=== PATIENT | female | born 1995 | race Hispanic/Latino ===

== ENCOUNTER 2023-06-20 01:18 | Observation (INO) | payer BC, SELFPAY ==
[2023-06-20] VITALS (9 sets, daily range): BP systolic 110–133; BP diastolic 62–85; PULSE 53–72; RESP 14–18; TEMP 35.9–36.9; O2SAT 99–100; BMI 41.9; BMI 42.2
--- NOTE | 2023-06-20 01:27 | EDS_ITS ---
HPI History of Present Illness Chief Complaint: Flank Pain Informant: patient Onset/Context/Timing Onset: Today Context: Gradual Onset Timing: Continuous Quality: Aching Location: Right lower thoracic area and right upper quadrant of her abdomen Worsened by: Nothing Relieved by: Nothing Narrative Narrative: Patient presents with back pain that began today. Patient states it came on gradually. Patient states it has been constant. Patient describes it as aching. Patient states it is over her lower thoracic area and radiates around to her right upper abdomen. Patient admits to some nausea and vomiting. Patient denies any diarrhea, melena, or hematochezia. Patient denies any hematemesis or coffee-ground emesis. Patient denies any urinary complaints. Patient states nothing makes her pain better and nothing makes it worse. Patient denies any fevers or chills. [facility] Medical History Kidney stones Home Medications NK 06/20/23 [History Last Taken Unknown] Allergy/AdvReac Type Severity Reaction Status Date / Time No Known Allergies Allergy Verified 06/20/23 01:19 Surgical History no surgical history no surgical history Social History Smoking Status: Never smoker ROS ROS ED Constitutional Constitutional ED: Denies chills or fever(s) Eyes Eyes: Denies blurry vision or change in vision ENT ENT ED: Denies rhinorrhea or sore throat Cardiovascular Cardiovascular: Denies chest pain or palpitations Respiratory/Chest Respiratory/Chest: Denies cough or dyspnea Gastrointestinal Gastrointestinal: Reports abdominal pain, nausea and vomiting; Denies diarrhea or melena Genitourinary Genitourinary ED: Denies dysuria or hematuria Musculoskeletal Musculoskeletal: Reports back pain; Denies neck pain Integumentary Denies abscess or rash Neurologic Neurologic: Denies headache(s) or weakness Allergic/Immunologic Allergic/Immunologic ED: Denies mouth swelling or urticaria EXAM Physical Exam Const Vital Signs: 06/20/23 01:19 06/20/23 03:18 06/20/23 05:00 Temperature 96.7 F L Temperature Source Temporal Pulse Rate 72 70 Respiratory Rate 18 18 Blood Pressure 133/75 H 131/85 H 129/81 H Blood Pressure Mean 94 100 97 Pulse Ox 100 99 06/20/23 06:23 Temperature Temperature Source Pulse Rate Respiratory Rate Blood Pressure 126/77 H Blood Pressure Mean 93 Pulse Ox Positive well nourished, well developed and obese General Appearance ED: well developed and NAD Nutritional Appearance: obese HEENT Reports moist mucous membranes Neck supple and no JVD Resp normal respiratory effort and clear to auscultation bilaterally Cardio regular rate and regular rhythm GI non-distended Palpation: soft and tender RUQ and Wang's sign; Negative for guarding or rebound tenderness present Back/Spine General Back: CVA tenderness right Neuro oriented x3, CN's II-XII intact bilaterally and no sensory deficits noted Sensorium / Orientation: alert Motor Exam: strength 5/5 throughout Psych mental status grossly normal Skin skin turgor normal MDM MDM MDM Narrative Medical decision making narrative: Differential diagnosis includes cholecystitis, cholelithiasis, pancreatitis, peptic ulcer disease, duodenal ulcer, pyelonephritis, ureteral calculus, bowel obstruction, perforation, and gastroenteritis. CBC will be obtained to assess for leukocytosis and anemia. Comprehensive metabolic profile will be obtained to assess for hepatic function, renal function, and electrolyte abnormality. Lipase will be obtained to assess for pancreatitis. Urinalysis will be obtained to assess for urinary tract infection and hematuria. CT scan of the abdomen pelvis will be obtained to assess for ureteral calculus, bowel obstruction, perforation, cholecystitis, and cholelithiasis. Lab Data Attestation: I reviewed the patient's lab results. Lab results narrative: CBC was reviewed. There is a mild leukocytosis of 12.3. The remainder is w ithin normal limits. Comprehensive metabolic profile was reviewed. Glucose was slightly elevated at 122. ALT was slightly elevated at 71. The remainder is within normal limits. Lipase was reviewed and was normal. Urinalysis was reviewed. There are 5-10 epithelial cells. There is no white blood cells or red blood cells noted. There is no bacteria noted. Labs: Laboratory Results - last 24 hr 06/20/23 06/20/23 01:25 05:15 WBC 12.3 H RBC 4.35 Hgb 13.2 Hct 40.6 MCV 93.3 MCH 30.3 MCHC 32.5 RDW Std Deviation 41.5 RDW Coeff of Thierry 12.1 Plt Count 361 MPV 9.6 Immature Gran % (Auto) 0.400 Neut % (Auto) 66.0 Lymph % (Auto) 28.3 Andrews % (Auto) 4.7 Eos % (Auto) 0.3 Baso % (Auto) 0.3 Absolute Neuts (auto) 8.1 H Absolute Lymphs (auto) 3.48 Nucleated RBC % 0 Sodium 139 Potassium 3.6 Chloride 107 Carbon Dioxide 27.0 Anion Gap 5 BUN 13 Creatinine 0.88 Estim Creat Clear Calc 133.98 Est GFR (MDRD) Af Amer 99 Est GFR (MDRD) Non-Af 82 BUN/Creatinine Ratio 14.8 Glucose 122 H Calcium 9.2 Total Bilirubin 0.60 AST 32 ALT 71 H Alkaline Phosphatase 85 Total Protein 8.1 Albumin 3.9 Globulin 4.2 Albumin/Globulin Ratio 0.9 Lipase 36 Serum , Qual NEGATIVE Urine Color Yellow Urine Clarity Clear Urine pH 7.0 Ur Specific [place] 1.010 Urine Protein 15 H Urine Glucose (UA) Normal Urine Ketones Negative Urine Occult Blood 25 H Urine Nitrite Negative Urine Bilirubin Negative Urine Urobilinogen Normal Ur Leukocyte Esterase 100 H Urine RBC 0 SEEN Urine WBC 0 SEEN Ur Squamous Epith Cells 5-10 SEEN Urine Bacteria 0 SEEN Urine Mucus 0 SEEN Radiography Diagnostic Testing: Clinical Impression(s) from Imaging Studies Abdomen/Pelvis CT 06/20/23 02:04 IMPRESSION: 1. Findings are highly suspicious for early acute cholecystitis in the appropriate clinical setting. Borderline thickened gallbladder wall, prominent gallbladder distention, slight dependent complex intraluminal material. Consider ultrasound if not recently performed. No biliary dilatation. 2. Mesenteric adenopathy, likely chronic. No evidence of appendicitis. Electronically Signed: Keisha Zhao MD at 5:33 EST , Gallbladder Ultrasound 06/20/23 06:08 IMPRESSION: Gallstones with gallbladder wall thickening and pericholecystic fluid. These findings are suspicious for acute cholecystitis. However, please note that the anvil worker reported a negative sonographic Wang''s sign. If indicated, further evaluation with a nuclear medicine hepatobiliary study can be performed. Enlarged, fatty liver. Electronically Signed: Abundio Ndiaye MD at 7:58 EST , CT scan of the abdomen and pelvis was obtained. There is borderline thickened gallbladder wall and prominent gallbladder distention. There is some slightly dependent complex intraluminal material. This is suspicious for early acute cholecystitis. There is no evidence of appendicitis. This was interpreted by the radiologist and was also independently reviewed by myself. Treatment and Re-Evaluation :: Patient was given IV fluids morphine, and Zofran initially. Patient states the morphine helped with her pain but the pain is starting to return. Patient was given a repeat dose of morphine. Patient was also given a dose of Zosyn. Case was discussed with Dr. Farah from general surgery. She recommended obtaining an ultrasound as this will help determine if the patient would require emergent surgery. She also recommended giving the patient Protonix. This was ordered. Right upper quadrant ultrasound was obtained. There is gallstones with gallbladder wall thickening and pericholecystic fluid. This is consistent with acute cholecystitis. This was interpreted by the radiologist and was also independently reviewed by myself. Case was discussed with Dr. Farah. She will admit the patient to her service. Patient understood and was agreeable with the plan. All questions were answered. Discharge Plan Triage Chief Complaint: Flank Pain ED Provider: Jose Escudero Dx/Rx/DC Orders Clinical Impression: Acute cholecystitis, Right upper quadrant abdominal pain Prescriptions: No Action NK Primary Care Provider: Care Physician,No Primary Referrals: Care Physician,No Primary [Primary Care Provider] - Disposition Disposition: Acute Care [facility]
--- NOTE | 2023-06-20 02:04 | CT_ITS ---
EXAM: CT ABDOMEN AND PELVIS WITH INTRAVENOUS CONTRAST CLINICAL INDICATION: Abdominal pain -- IV PO Contrast TECHNIQUE: Helically acquired images were obtained of the abdomen and pelvis with intravenous contrast. This CT exam was performed using one or more of the following dose reduction techniques: automated exposure control, adjustment of the mA and/or kV according to patient size, and/or use of iterative reconstruction technique. CONTRAST: 100 ML ISOVUE 370 RADIATION DOSE: CTDIvol = 22.07 mGy, DLP = 1438.67 mGy-cm. There COMPARISON: No relevant prior studies available. FINDINGS: LOWER THORAX: Unremarkable. Lung bases are clear. No cardiomegaly. No significant pericardial effusion. ABDOMEN: LIVER: Unremarkable. Homogeneous. No focal mass. GALLBLADDER AND BILE DUCTS: The gallbladder is mildly prominently distended, 4.3 cm transverse, with borderline 3-4 mm wall and some slightly dependent material which may be a slight sludge or tiny minimally calcified stones. No well-circumscribed calcified stone is apparent. Small common duct filling defect. PANCREAS: Unremarkable. No focal cystic or solid mass. SPLEEN: Unremarkable. Normal size without focal cystic or solid mass. ADRENALS: Unremarkable. No nodules. KIDNEYS AND URETERS: Unremarkable. Normal renal size and position. No hydronephrosis. STOMACH AND BOWEL: Oral contrast reached the mid small bowel loops, some obstruction. There is moderate stool in the right colon, moderate gas and minimal stool in the transverse colon. Collapsed segments of most of the distal colon and rectum. No focal inflammatory change. PELVIS: APPENDIX: The appendix is gasless but only measures 5.3-5.8 mm maximum diameter on coronal images 59 through 65, no surrounding inflammation. BLADDER: Unremarkable. REPRODUCTIVE: Unremarkable as visualized. No mass. ABDOMEN and PELVIS: INTRAPERITONEAL SPACE: Unremarkable. No ascites or other fluid collection. No free air. BONES/JOINTS: Unremarkable. No suspicious lytic or blastic abnormality. SOFT TISSUES: Unremarkable. No discrete abdominal or pelvic wall hernia. VASCULATURE: Unremarkable. Abdominal aorta is non-dilated. LYMPH NODES: Mild mesenteric adenopathy, best seen on the coronal images, uncertain chronicity. CT/Abdomen/Pelvis WITH Contrast IMPRESSION: 1. Findings are highly suspicious for early acute cholecystitis in the appropriate clinical setting. Borderline thickened gallbladder wall, prominent gallbladder distention, slight dependent complex intraluminal material. Consider ultrasound if not recently performed. No biliary dilatation. 2. Mesenteric adenopathy, likely chronic. No evidence of appendicitis. Electronically Signed: Keisha Zhao MD at 5:33 EST ,
[2023-06-20 02:27] LABS: Absolute Lymphocyte Count 3.48 X10^3/uL (0.83-4.51); Absolute Neutrophil Count 8.1 X10^3/uL (2.0-7.7); Basophil# 0.04 X10^3/uL; Basophil% 0.3 % (0-1); Eosinophil# 0.04 X10^3/uL; Eosinophils% 0.3 % (0-5); Hematocrit 40.6 % (37-47); Hemoglobin 13.2 g/dL (12.0-15.0); Lymphocyte # 3.48 X10^3/ul (0.83-4.51); Lymphocyte % 28.3 % (19-41); Mean Corp Hgb Conc 32.5 g/dL (32-36); Mean Corpuscular Hgb 30.3 pg (27.0-32.0); Mean Corpuscular Volume 93.3 fL (81-99); Mean Platelet Vol. 9.6 fl (6.2-12.0); Monocyte# 0.58 X10^3/uL; Monocyte% 4.7 % (0-10); NRBC Flagged by Analyzer 0 % (0-5); Neutrophil # 8.09 X10^3/uL (2.7-7.7); Platelet Count 361 K/mm3 (150-450); RBC Distribution Width CV 12.1 % (11.6-14.6); RBC Distribution Width SD 41.5 fl (35.1-43.9); Red Blood Count 4.35 M/mm3 (4.2-5.4); White Blood Count 12.3 K/mm3 (4.4-11.0)
[2023-06-20] MEDS: Ondansetron 4 MG/2 ML Vial IV (02:30)
[2023-06-20] MEDS: 0.9% Normal Saline (1000mL) 1,000 ML 1000 ML IV (02:30)
[2023-06-20] MEDS: Morphine 4 MG/ML Syringe IV ×2 (02:30→06:19)
[2023-06-20 02:36] LABS: Internal QC Validated? YES +Cl - CLEAR BKGD; Pregnancy, Serum, hCG Quali. NEGATIVE Negative
[2023-06-20 02:44] LABS: ALB/GLOB Ratio 0.9 RATIO (0.9-2.4); AST(SGOT) 32 U/L (15-37); Alanine Aminotransfer ALT/SGPT 71 U/L (13-56); Albumin, Serum 3.9 g/dL (3.2-5.0); Alkaline Phosphatase 85 U/L (45-117); Anion Gap 5 (5-15); BUN 13 mg/dL (7-18); BUN/Creat Ratio 14.8 RATIO (10-20); Calcium,Total 9.2 mg/dL (8.5-10.1); Chloride 107 mmol/L (98-107); Creatinine, Serum 0.88 mg/dL (0.55-1.02); EST Glomerular Filtration Rate 82 mL/min (>60); Est Glom Filt Rate - Afr Amer 99 mL/min (>60); Estimated Creatinine Clearance 133.98 ml/min; Globulin 4.2 g/dL (2.2-4.2); Glucose 122 mg/dL (74-106); Lipase 36 U/L (13-75); Potassium 3.6 mmol/L (3.5-5.1); Protein, Total 8.1 g/dL (6.4-8.2); Sodium Level 139 mmol/L (136-145)
[2023-06-20 05:26] LABS: Bacteria 0 SEEN /hpf (None Seen); Mucous, Urine 0 SEEN /hpf (<or=2+); Red Blood Cells-Urine 0 SEEN /hpf (0-5); White Blood Cells 0 SEEN /hpf (0-5)
[2023-06-20 05:29] LABS: Color, Urine Yellow (Yellow); Glucose, Dipstick Normal (Normal); Ketone-Dipstick Negative (Negative); Leukocyte Esterase-Dipstick 100 /ul (Negative); Nitrite-Dipstick Negative (Negative); Occult Blood-Urine 25 /ul (Negative); Protein-Dipstick 15 mg/dl (Negative); Urine Bilirubin Dipstick Negative (Negative); Urine Clarity Clear (Clear); Urine Urobilinogen Normal (Normal)
[2023-06-20 05:51] LABS: Squamous Epithelial Cells - UA 5-10 SEEN /hpf (5-10)
--- NOTE | 2023-06-20 06:08 | US_ITS ---
STUDY: ABDOMINAL ULTRASOUND - RIGHT UPPER QUADRANT REASON FOR VISIT: Female, 27 years old. Pain TECHNIQUE: Ultrasound evaluation of the right upper quadrant was performed with real-time and static garvey-scale imaging. TECHNICAL QUALITY: Limited by body habitus. COMPARISON: CT dated 06/20/2023 FINDINGS: Liver: The liver measures 19.9 cm. There is increased echogenicity consistent with fatty infiltration. The bile ducts are within normal limits. There is hepatic color flow. The direction of portal flow is hepatopetal. There is no demonstrated mass lesion. Gallbladder: Normal distended gallbladder. The gallbladder wall measures 4 mm. There is a negative sonographic Wang''s sign. There is pericholecystic fluid. There are multiple echogenic structures within the gallbladder, consistent with multiple gallstones. Common Bile Duct (C.B.D.): The common bile duct measures 3 mm. Pancreas: Normal size of the head, body and tail of the pancreas. There is normal echogenicity of the pancreas. There is no demonstrated pancreatic mass or cyst. Right Kidney: Normal size of the right kidney. The right kidney measures 11.7 cm. Normal renal cortex. There is no demonstrated renal mass or cyst. There is no right hydronephrosis. US/Gallbladder IMPRESSION: Gallstones with gallbladder wall thickening and pericholecystic fluid. These findings are suspicious for acute cholecystitis. However, please note that the implementation project coordinator reported a negative sonographic Wang''s sign. If indicated, further evaluation with a nuclear medicine hepatobiliary study can be performed. Enlarged, fatty liver. Electronically Signed: Abundio Ndiaye MD at 7:58 EST ,
[2023-06-20] MEDS: Piperacil/Tazobactam 4.5 GM in 0.9% Normal Saline (100mL MB+) 100 ML IV (06:18)
[2023-06-20] MEDS: Pantoprazole Sodium 80 MG in 0.9% Normal Saline (50mL Bag) 15 ML 420 MG IV BOLUS (07:12)
--- NOTE | 2023-06-20 08:30 | NURSING ---
MED SURG [facility] ACUTE CHOLECYSTITIS
--- NOTE | 2023-06-20 08:39 | PCM.HP.STD ---
HPI - General General Date of Admission: 06/20/23 HPI Narrative CHUY WINTESR, is a 27 F who presents to ER due to RUQ pain and N/V. Pt had McDs at 12:30 and went to wedding as she is from [place]. At wedding had RUQ, n/v. CT a/p & U/S c/w acute dari with GS, pericholecystic fluid, wall thickening, normal LFT except ALT, WBC 12.3. Pt denies previous episodes similiar after eating as pt usually does meal preps. Currently pt pain was controlled after pain meds. [facility] Medical History (Updated 06/20/23 @ 09:45 by Bernadette Moore) Kidney stones PCOS (polycystic ovarian syndrome) Home Medications Lactobacillus rhamnosus GG 5 billion cell chewable tablet 1 tab PO BID 06/20/23 [History Last Taken 06/18/23] coenzyme Q10 100 mg capsule (Co Q-10) 100 mg PO DAILY SUPPLEMENT 06/20/23 [History Last Taken Unknown] inositol 750 mg capsule 1,025 mg PO DAILY SUPPLEMENT 06/20/23 [History Last Taken Unknown] multivitamin (Daily Multi-Vitamin tablet) 1 tab PO DAILY 06/20/23 [History Last Taken Unknown] omega 8-yvd-ebc-fish oil 300 mg-1,000 mg capsule (Fish Oil) 1 cap PO DAILY SUPPLEMENT 06/20/23 [History Last Taken 06/18/23] Allergy/AdvReac Type Severity Reaction Status Date / Time No Known Allergies Allergy Verified 06/20/23 01:19 Surgical History no surgical history Social History Smoking Status: Never smoker Vital Signs Vital Signs Vital Signs: 06/20/23 01:19 06/20/23 03:18 06/20/23 05:00 Temperature 96.7 F L Temperature Source Temporal Pulse Rate 72 70 Respiratory Rate 18 18 Blood Pressure 133/75 H 131/85 H 129/81 H Blood Pressure Mean 94 100 97 Pulse Ox 100 99 06/20/23 06:23 Temperature Temperature Source Pulse Rate Respiratory Rate Blood Pressure 126/77 H Blood Pressure Mean 93 Pulse Ox Weight Weight: 275 lb 12.772 oz Body Mass Index (BMI) 41.9 Physical Exam Const alert, oriented x3 and no apparent distress HEENT normocephalic and head/scalp atraumatic Resp normal respiratory effort Cardio regular rate GI soft to palpation; Negative for non-distended Palpation: tender RUQ (minimal) and Wang's sign; Negative for guarding Extremity no clubbing, cyanosis or edema Neuro CN's II-XII intact bilaterally Psych mental status grossly normal Results Lab / Micro Data 06/20/23 01:25 06/20/23 01:25 Labs: Laboratory Results - last 24 hr 06/20/23 01:25: WBC 12.3 H, RBC 4.35, Hgb 13.2, Hct 40.6, MCV 93.3, MCH 30.3, MCHC 32.5, RDW Std Deviation 41.5, RDW Coeff of Thierry 12.1, Plt Count 361, MPV 9.6, Immature Gran % (Auto) 0.400, Neut % (Auto) 66.0, Lymph % (Auto) 28.3, [place] % (Auto) 4.7, Eos % (Auto) 0.3, Baso % (Auto) 0.3, Absolute Neuts (auto) 8.1 H, Absolute Lymphs (auto) 3.48, Nucleated RBC % 0, Sodium 139, Potassium 3.6, Chloride 107, Carbon Dioxide 27.0, Anion Gap 5, BUN 13, Creatinine 0.88, Estim Creat Clear Calc 133.98, Est GFR (MDRD) Af Amer 99, Est GFR (MDRD) Non-Af 82, BUN/Creatinine Ratio 14.8, Glucose 122 H, Calcium 9.2, Total Bilirubin 0.60, AST 32, ALT 71 H, Alkaline Phosphatase 85, Total Protein 8.1, Albumin 3.9, Globulin 4.2, Albumin/Globulin Ratio 0.9, Lipase 36, Serum , Qual NEGATIVE 06/20/23 05:15: Urine Color Yellow, Urine Clarity Clear, Urine pH 7.0, Ur Specific [place] 1.010, Urine Protein 15 H, Urine Glucose (UA) Normal, Urine Ketones Negative, Urine Occult Blood 25 H, Urine Nitrite Negative, Urine Bilirubin Negative, Urine Urobilinogen Normal, Ur Leukocyte Esterase 100 H, Urine RBC 0 SEEN, Urine WBC 0 SEEN, Ur Squamous Epith Cells 5-10 SEEN, Urine Bacteria 0 SEEN, Urine Mucus 0 SEEN Imaging Radiology Impression Abdomen/Pelvis CT 06/20/23 02:04 IMPRESSION: 1. Findings are highly suspicious for early acute cholecystitis in the appropriate clinical setting. Borderline thickened gallbladder wall, prominent gallbladder distention, slight dependent complex intraluminal material. Consider ultrasound if not recently performed. No biliary dilatation. 2. Mesenteric adenopathy, likely chronic. No evidence of appendicitis. Electronically Signed: Keisha Zhao MD at 5:33 EST , Gallbladder Ultrasound 06/20/23 06:08 IMPRESSION: Gallstones with gallbladder wall thickening and pericholecystic fluid. These findings are suspicious for acute cholecystitis. However, please note that the airplane gas tank liner assembler reported a negative sonographic Wang''s sign. If indicated, further evaluation with a nuclear medicine hepatobiliary study can be performed. Enlarged, fatty liver. Electronically Signed: Abundio Ndiaye MD at 7:58 EST , Assessment & Plan Assessment/Plan (1) Acute cholecystitis: PLAN: Plan admit, clears for today and NPO at midnight. lap dari tomorrow, IV zosyn and pain control. Reviewed the anatomy with the patient and discussed the procedure: laparoscopic cholecystectomy with cholangiograms, possible open. Review risks including but not limited to bleeding, infection, hernia, bile leak, retained gallstones requiring another procedure ERCP- Endoscopic Retrograde Cholangiopancreatography, injury to another organ (bile ducts, common bile duct, small bowel, etc.) and conversion to an open procedure. All questions were answered.
[2023-06-20] MEDS: 0.9% Normal Saline (1000mL) 1,000 ML 100 ML IV ×2 (12:45→22:13)
[2023-06-20] MEDS: 0.9% Saline Lock 10 ML Syringe IV (12:45)
[2023-06-20] MEDS: 0.9% Normal Saline (250mL Bag) 250 ML 15 ML IV (14:41)
[2023-06-20] MEDS: Piperacil/Tazobactam 3.375 GM in 0.9% Normal Saline (50mL MB+) 50 ML IV ×2 (14:41→22:12)
[2023-06-20] MEDS: Acetaminophen 325 MG Tablet 650 MG PO (22:21)
[2023-06-21] VITALS (12 sets, daily range): BP systolic 105–134; BP diastolic 62–85; PULSE 55–66; RESP 16–18; TEMP 36.5–37.2; O2SAT 93–100; BMI 42.2
--- NOTE | 2023-06-21 05:00 | EKG12_ITS ---
Test Reason : PRE-OP Blood Pressure : / mmHG Vent. Rate : 057 BPM Atrial Rate : 057 BPM P-R Int : 184 ms QRS Dur : 092 ms QT Int : 450 ms P-R-T Axes : 032 017 018 degrees QTc Int : 438 ms Sinus bradycardia with sinus arrhythmia Otherwise normal ECG Confirmed by TREY TIMMONS, JOSSE ([id number]), video tape editor KERRIE HOLGUIN ([id number]) on 06/22/2023 6:29:17 AM Referred By: Confirmed By:JOSSE YANG MD
[2023-06-21] MEDS: Piperacil/Tazobactam 3.375 GM in 0.9% Normal Saline (50mL MB+) 50 ML IV ×3 (05:57→21:12)
[2023-06-21] MEDS: 0.9% Normal Saline (1000mL) 1,000 ML 100 ML IV ×3 (05:58→16:30)
[2023-06-21 06:17] LABS: Absolute Neutrophil Count 2.6 X10^3/uL (2.0-7.7); Basophil# 0.03 X10^3/uL; Basophil% 0.4 % (0-1); Eosinophil# 0.13 X10^3/uL; Eosinophils% 1.7 % (0-5); Hematocrit 35.9 % (37-47); Hemoglobin 11.5 g/dL (12.0-15.0); Lymphocyte % 57.6 % (19-41); Mean Corpuscular Hgb 30.6 pg (27.0-32.0); Mean Corpuscular Volume 95.5 fL (81-99); Mean Platelet Vol. 9.7 fl (6.2-12.0); Monocyte# 0.36 X10^3/uL; Monocyte% 4.8 % (0-10); NRBC Flagged by Analyzer 0 % (0-5); Neutrophil # 2.64 X10^3/uL (2.7-7.7); Neutrophil % 35.4 % (47-70); Platelet Count 305 K/mm3 (150-450); RBC Distribution Width CV 12.1 % (11.6-14.6); RBC Distribution Width SD 41.4 fl (35.1-43.9); Red Blood Count 3.76 M/mm3 (4.2-5.4); White Blood Count 7.5 K/mm3 (4.4-11.0)
[2023-06-21 06:26] LABS: AST(SGOT) 21 U/L (15-37); Alanine Aminotransfer ALT/SGPT 56 U/L (13-56); Albumin, Serum 3.1 g/dL (3.2-5.0); Alkaline Phosphatase 68 U/L (45-117); Anion Gap 4 (5-15); BUN 5 mg/dL (7-18); BUN/Creat Ratio 7.8 RATIO (10-20); Bilirubin, Direct 0.23 mg/dL (0.00-0.30); Calcium,Total 8.3 mg/dL (8.5-10.1); Chloride 112 mmol/L (98-107); Creatinine, Serum 0.64 mg/dL (0.55-1.02); EST Glomerular Filtration Rate 117 mL/min (>60); Est Glom Filt Rate - Afr Amer 141 mL/min (>60); Estimated Creatinine Clearance 185.02 ml/min; Globulin 3.5 g/dL (2.2-4.2); Glucose 89 mg/dL (74-106); Potassium 3.6 mmol/L (3.5-5.1); Protein, Total 6.6 g/dL (6.4-8.2); Sodium Level 140 mmol/L (136-145)
--- NOTE | 2023-06-21 08:20 | GALL_PTH ---
PATHOLOGY RESULTS PATIENT: CHUY ANDRES LOC: MS3 U#:[id number] AGE/SX: 27/F ROOM: MS319 RE06/20/[address]: Dr. Vero Farah MD : [id number] BED: 1 DIS: 06/22/2023 SPEC #: [id number] RECD: 06/22/23 07:38 STATUS: MADELAINE JUAN #: [id number] JOSEF: 06/21/23 08:[address]: Vero Farah DEPT: SURGICAL PATHOLOGY RECD BY: Rebecca Henriquez ENTERED: 06/22/23 07:39 SP TYPE: RORY MONDRAGON DR: No Primary Care Phys Tissues: Gallbladder, NOS Procedures: Surgery Specimen Level III HEADER OPERATION: Laparoscopic cholecystectomy PRE-OP DIAGNOSIS: Acute cholecystitis TISSUE SUBMITTED: Gallbladder MICROSCOPIC DIAGNOSIS Gallbladder, cholecystectomy: Acute and chronic ulcerated cholecystitis and cholelithiasis. RHINA:zenaida 06/23/2023 MICROSCOPIC DESCRIPTION Slides are reviewed. GROSS DESCRIPTION Received is one container labeled with the patient's name and designated gallbladder. The specimen consists of a gallbladder measuring 8.0 cm in length and up to 4.0 cm in diameter. The external surface is pink-clifford, smooth and glistening for the most part. Focally it is granular, hemorrhagic and contains cautery artifact. The gallbladder contains hemorrhagic bile and multiple mulberry stones measuring in aggregate 2.5 x 1.8 x 1.0 cm and 0.1 to 0.8 cm in greatest dimension. The mucosa is bile-stained and without any mass lesions. The gallbladder wall measures up to 0.3 cm in thickness. Habilitation Worker sections from the gallbladder and the cystic duct are submitted in one cassette. / SJ:zenaida 06/22/2023 :2 [facility]: [id number]
[2023-06-21] MEDS: Pantoprazole Sodium 40 MG in 0.9% Normal Saline (100mL MB+) 100 ML 330 MG IV (10:28)
--- NOTE | 2023-06-21 11:18 | NURSING ---
Patient left unit to go to OR, report given to MARICARMEN RN.
[2023-06-21] MEDS: Lactated Ringers 1,000 ML 15 ML IV (13:35)
--- NOTE | 2023-06-21 15:00 | OP.PCM_ITS ---
Report of Operation Date of Procedure: 06/21/23 Pre-Operative Diagnosis: Acute calculus cholecystitis Post-Operative Diagnosis: Same Surgery/Procedure Performed:: Laparoscopic cholecystectomy Surgeon: Vero Farah money examiner: Nadiya Mary Type of Anesthesia: General/Supplemental Anesthesiologist: Oscar Fitzpatrick Special Medications: Zosyn 3.375 g IV every 8 hours for acute cholecystitis Specimen's removed: Gallbladder and stones Estimated Blood Loss (mL): 10 cc Description of Procedure: Indications: this is a 27 year-old female who developed abdominal pain/nausea/vomiting and on workup was found to have acute cholecystitis, cholelithiasis, with a normal common bile duct and normal LFTs. Laparoscopic cholecystectomy was elected. Description procedure: The patient was placed on operating table in supine position. A timeout was completed verifying correct patient, procedure, site, position and special equipment prior to beginning procedure. General Anesthesia was induced. The abdomen was prepped and draped in usual sterile fashion. An incision was made in the natural skin line above the umbilicus. The fascia was elevated and incised-0 Prolenes were placed on the fascia for traction. The peritoneum was elevated and incised. Entry into the peritoneum was confirmed visually and no bowel was noted in the vicinity of the incision. Jarvis trocar was placed. The abdomen was insufflated with carbon dioxide to a pressure of 12-15 mmHg. Jaxson mackey tolerated insufflation well. The laparoscope was then inserted and abdomen inspected. No injuries from initial trocar placement were noted. Additional trochars were then inserted in the following locations 5 mm trocar in the epigastrium and 2 more 5 mm trochars along the right costal margin. The abdomen was inspected no abnormalities were found. The table is placed in reverse Trendelenburg position with the right side up. The dome of the gallbladder was grasped with atraumatic grasper passed through the lateral port and retracted over the dome of the liver. Infundibulum was then grasped with atraumatic grasper through the midclavicular port and retracted to the right lower quadrant. This maneuver exposed Calot's triangle. The peritoneum overlying the gallbladder infundibulum was then incised and cystic duct and artery identified and circumferentially dissected. The cystic duct and artery were then doubly clipped and divided close to the gallbladder. The gallbladder then dissected from its peritoneal attachments by electrocautery. Hemostasis was checked and the gallbladder and contained stones were removed using the endoscopic retrieval bag through the umbilical port. The gallbladder is passed off table as specimen. The gallbladder fossa was irrigated with saline and hemostasis obtained. There is no evidence of bleeding from the gallbladder fossa or cystic artery leakage of bile from the cystic duct stump. Secondary trochars removed under direct vision. No bleeding was noted the trocar sites. The laparoscope was withdrawn and umbilical trocar removed. The abdomen was allowed to collapse. The fascia of the 12 mm trocar was closed with a [id number] 0 Vicryl suture. Local anesthesia of 0.5% Marcaine was used throughout the case for total of 20 cc. the skin was closed with sutures of 4-0 Monocryl and Steri-Strips. The patient was extubated. The patient tolerated procedure well and was taken to the postanesthesia care unit in stable condition. Complications none
[2023-06-21] MEDS: Bupivacaine Mpf 0.5% 30 ML VIAL (15:03)
--- NOTE | 2023-06-21 15:04 | DCINST_ITS ---
Discharge Instructions Diet Discharge Diet: Light diet - advance as tolerated Activity Discharge Activity: May Not Drive (while taking narcotic pain medications.) May shower in (days): 1 Lifting Restrictions: no lifting >20 lbs x 2 wks, no strenuous exercise for 4 wks Dressing / Incision Call your doctor if your incision/area has: Continuous Slow Oozing, Sudden Increased Bleeding, Increased Pain/ Swelling, Increased Redness, Foul Smelling Discharge and Swelling at the incision site Call your doctor if you observe: Fever of 101 or Higher Remove Dressing in: 2 days Cleanse incision/area with: Soap & Water Additional Dressing/Incision Instructions:: Steri-Strips will fall off in 7 to 10 days, if they do not fall off okay to remove after 10 days. Follow Up Care Please Follow Up With: Vero Farah MD When: Call the office to let us know how you are doing 2 weeks?follow-up with your PCP; after 4 PM and on the weekends call [phone] with any concerns. Office number is [phone] any have any concerns during 7am-4pm M-F. Test Results: Test results from this visit will be discussed in further detail at your follow- up appointment, if applicable. Discharge Plan Admission Admit Date/Time: 06/20/23 08:39 Attending Provider: Vero Farah Primary Care Provider: Sussy PhysicianMila Primary Discharge Orders/Prescriptions Prescriptions: New hydrocodone-acetaminophen 5-325 mg tablet 1 tab PO Q6H PRN (Reason: pain) 3 Days Qty: 14 0RF Continued Lactobacillus rhamnosus GG 5 billion cell tablet,chewable 1 tab PO BID Rx Instructions: URO VAGINAL PROBIOTIC multivitamin [Daily Multi-Vitamin] Tablet 1 tab PO DAILY coenzyme Q10 [Co Q-10] 100 mg capsule 100 mg PO DAILY inositol 750 mg capsule 1,025 mg PO DAILY Patient Comments: PT BRINGING MED. GOT MED ON [facility] Held omega 9-sje-uaf-fish oil [Fish Oil] 300-1,000 mg capsule 1 cap PO DAILY Hold Instructions: Resume on 06/24/23. Referrals / Follow Up: Care PhysicianMila Primary [Primary Care Provider] - Disposition Disposition (needs filled in before D/C Order can be placed): Home, Self Care
[2023-06-21] MEDS: Ketorolac 15 MG/ML Vial IV (16:00)
[2023-06-21] MEDS: HYDROcodone Bitartrate/Apap 5/325 Tablet PO (18:18)
[2023-06-21] MEDS: Acetaminophen 325 MG Tablet 650 MG PO (21:16)
[2023-06-22 00:50] VITALS: BP 120/79; PULSE 64; RESP 16; TEMP 36.8; O2SAT 97
[2023-06-22] MEDS: Ketorolac 15 MG/ML Vial IV (00:54)
[2023-06-22] MEDS: 0.9% Saline Lock 10 ML Syringe IV (00:55)
[2023-06-22 05:04] VITALS: BP 111/69; PULSE 54; RESP 16; TEMP 36.6; O2SAT 97
[2023-06-22] MEDS: Piperacil/Tazobactam 3.375 GM in 0.9% Normal Saline (50mL MB+) 50 ML IV (05:06)
--- NOTE | 2023-06-22 07:57 | PN.SURG_ITS ---
Subjective Subjective Patient tolerating diet, pain controlled Objective Data Objective Data Vital Signs: Vital Signs Temp Pulse Resp BP Pulse Ox O2 Del Method O2 Flow Rate 98 F 54 L 16 111/69 97 Room Air 3 06/22/23 05:04 06/22/23 05:04 06/22/23 05:04 06/22/23 05:04 06/22/23 05:04 06/22/23 05:04 06/21/23 15:45 Oxygen Flow Rate (L/min) 3 Oxygen Delivery Method Room Air Weight: 277 lb 14.4 oz Body Mass Index (BMI) 42.2 Intake & Output: Intake and Output for Last 24 Hours 06/20/23 06/21/23 06/22/23 23:59 23:59 23:59 Intake Total 3131.67 / 3331.67 4323.34 / 4523.34 550 / 550 Balance 3131.67 / 3331.67 4323.34 / 4523.34 550 / 550 Lab / Micro Data 06/21/23 04:35 06/21/23 04:35 Physical Exam Resp normal respiratory effort Cardio regular rate GI GI Narrative: Abdomen: Soft, nondistended, tender near incision's dressed clean dry and intact, no peritoneal signs Assessment & Plan Assessment/Plan (1) S/P laparoscopic cholecystectomy: PLAN: Plan Patient is doing well tolerating diet, pain controlled. Incision dressed with OpSite's. Patient will call and let us know how she is doing in about 2 weeks or call with any concerns prior to that as she does live in [place]. And was just up here for a wedding. Patient and her no further questions this time. Vero Farah M.D. Pager: [phone] [facility] [address] [place] [address], [address] [place] [address] Office: [phone]
--- NOTE | 2023-06-22 08:18 | PCM.DC.SUM ---
Providers Date of Admission: 06/20/23 Primary Care Physician: No Primary Care Phys Reason For Visit: ACUTE CHOLECYSTITIS Diagnosis Discharge Diagnosis (1) S/P laparoscopic cholecystectomy: Status: Acute Code(s): Z90.49 - Acquired absence of other specified parts of digestive tract Medications at Discharge Home Medications Lactobacillus rhamnosus GG 5 billion cell chewable tablet 1 tab PO BID 06/20/23 coenzyme Q10 100 mg capsule (Co Q-10) 100 mg PO DAILY SUPPLEMENT 06/20/23 inositol 750 mg capsule 1,025 mg PO DAILY SUPPLEMENT 06/20/23 multivitamin (Daily Multi-Vitamin tablet) 1 tab PO DAILY 06/20/23 omega 0-msn-zbi-fish oil 300 mg-1,000 mg capsule (Fish Oil) 1 cap PO DAILY SUPPLEMENT 06/20/23 hydrocodone-acetaminophen 5-325mg 5mg-325mg 1 tab PO Q6H PRN pain 3 days #14 tabs 06/21/23 Hospital Course Operations cholecystecomy (Laparoscopic cholecystectomy) Summary of Care Provided Minutes Spent on Discharge: 30 Hospital Course: Patient presented with mid back pain, nausea, vomiting. CT scan was obtained which demonstrated thickened gallbladder wall and prominent gallbladder distention. Suspicious for early acute cholecystitis. RUQ u/s was obtained demonstrating cholelithiasis, gallbladder wall thickening, pericholecystic fluid, consistent with acute cholecystitis. Dr. Farah performed a laparoscopic cholecystectomy on 06/21/23. Patient tolerated the procedure well. She had an uneventful hospitalization. Upon discharge, pain was well controlled. She notes incisional pain. She denies nausea, vomiting. She notes tolerating a diet. She is from out of town and may schedule a virtual visit or return in person for a follow-up. Weight / BMI Weight Weight: 277 lb 14.4 oz Body Mass Index (BMI) 42.2 ABG / Lab / Microbiology Data 06/21/23 04:35 06/21/23 04:35 D/C Instructions Discharge Diet: Light diet - advance as tolerated May shower in (days): 1 Call your doctor if your incision/area has: Continuous Slow Oozing, Sudden Increased Bleeding, Increased Pain/ Swelling, Increased Redness, Foul Smelling Discharge and Swelling at the incision site Call your doctor if you observe: Fever of 101 or Higher Cleanse incision/area with: Soap & Water Additional Dressing/Incision Instructions: Steri-Strips will fall off in 7 to 10 days, if they do not fall off okay to remove after 10 days. Please Follow Up With: Vero Farah MD When: Call the office to let us know how you are doing 2 weeks?follow-up with your PCP; after 4 PM and on the weekends call [phone] with any concerns. Office number is [phone] any have any concerns during 7am-4pm M-F. Meaningful Use Info Meaningful Use Diagnoses (Choose all that apply): None applicable Discharge Plan Admission Admit Date/Time: 06/20/23 08:39 Primary Reason for Your Visit: Acute cholecystitis Attending Provider: Vero Farah Primary Care Provider: Care PhysicianMila Primary Discharge Orders/Prescriptions Prescriptions: New hydrocodone-acetaminophen 5-325 mg tablet 1 tab PO Q6H PRN (Reason: pain) 3 Days Qty: 14 0RF Continued Lactobacillus rhamnosus GG 5 billion cell tablet,chewable 1 tab PO BID Rx Instructions: URO VAGINAL PROBIOTIC multivitamin [Daily Multi-Vitamin] Tablet 1 tab PO DAILY coenzyme Q10 [Co Q-10] 100 mg capsule 100 mg PO DAILY inositol 750 mg capsule 1,025 mg PO DAILY Patient Comments: PT BRINGING MED. GOT MED ON [employer] Held omega 1-glc-shm-fish oil [Fish Oil] 300-1,000 mg capsule 1 cap PO DAILY Hold Instructions: Resume on 06/24/23. Referrals / Follow Up: Vero Farah MD [Med Staff - Active Staff] - 07/06/23 (Follow-up in 2 weeks post-operatively. Please contact our office for a virtual visit or in-person visit. ) Care Physician,No Primary [Primary Care Provider] - Disposition Disposition (needs filled in before D/C Order can be placed): Home, Self Care Charges/Coding Visit Charges Inpatient E&M: 50378 Disch Hosp (no charge, post-op)
[2023-06-22 08:26] VITALS: BP 135/81; PULSE 52; RESP 18; TEMP 36.7; O2SAT 98
[2023-06-22] MEDS: Acetaminophen 325 MG Tablet 650 MG PO (08:34)
--- NOTE | 2023-06-22 09:40 | PHA.DC.MC.R ---
Pharmacy [facility] has performed discharge medication reconciliation and counseling for this patient. The patient's discharge medication list was reviewed for discrepancies and discrepancies were resolved. The patient was counseled on the following discharge medications and changes in medications for homegoing were reviewed. The Reason for Use, instructions for use, and potential side effects were reviewed for all new medications. The patient's questions regarding all of their medications were answered. 1. Hydrocodone/acetaminophen 5/325 PO Q6H PRN pain. The patient was able to verbally demonstrate an understanding of their discharge medications. The patient was counselled on new medication by student outreach coordinator Darin. Medications at Discharge Home Medications Lactobacillus rhamnosus GG 5 billion cell chewable tablet 1 tab PO BID 06/20/23 coenzyme Q10 100 mg capsule (Co Q-10) 100 mg PO DAILY SUPPLEMENT 06/20/23 inositol 750 mg capsule 1,025 mg PO DAILY SUPPLEMENT 06/20/23 multivitamin (Daily Multi-Vitamin tablet) 1 tab PO DAILY 06/20/23 omega 2-eqn-cqh-fish oil 300 mg-1,000 mg capsule (Fish Oil) 1 cap PO DAILY SUPPLEMENT 06/20/23 hydrocodone-acetaminophen 5-325mg 5mg-325mg 1 tab PO Q6H PRN pain 3 days #14 tabs 06/21/23
== END 2023-06-22 09:49 | disposition home or self-care (01) ==
LOC: ED 08:23 → MS3 08:44
PROVIDERS: Admitting Provider Surgery; Emergency Provider Emergency Medicine; Visit Provider Surgery
PROC: (CPT 47610; principal; 2023-06-21 08:00)
DX: K80.12 Calculus of gallbladder with acute and chronic cholecystitis without obstruction (principal)
CPT/HCPCS: 47562; 00790; 74177; 76705; 80048; 80053; 80076; 81001; 83690; 84703; 85025; 88304; 93005; 94668; 96361; 96365; 96366; 96367; 96375; 96376; 99221; 99284; J7030; J7050; J7120; Q9967; A4216; G0378; J0330; J2405; J3490